=== PATIENT | female | born 1975 | race Caucasian/White ===

== ENCOUNTER 2016-09-13 19:18 | Observation (INO) | payer BC ==
--- NOTE | ~2016-09-13 | OR ---
Unit #: [id number] #: [id number] Patient: ALL REICH [id number] [address] [place], [place] [address] [id number] I MR#: [id number] NAME: ALL REICH ROOM: 462 Date of Procedure: 09/14/2016 Admission Date: 09/13/2016 Surgeon: Emeka Lara M.D. : 1975 Attending Physician: Emeka Lara M.D. OPERATIVE REPORT PREOPERATIVE DIAGNOSIS Bolus meat impaction of the distal esophagus. PROCEDURES PERFORMED Upper gastrointestinal endoscopy and foreign body removal. POSTOPERATIVE DIAGNOSES 1. The patient had meat impaction in the distal esophagus. This was disimpacted. 2. There was a stricture in the distal esophagus with benign appearance. 3. Small hiatus hernia. 4. Mild antral gastritis. A biopsy obtained from the antrum for CLOtest. 5. Rest of the examination up to third part of duodenum was normal. RECOMMENDATIONS The patient will be scheduled to have an elective dilation in the next couple of months as an outpatient. SEDATION USED MAC. DESCRIPTION OF PROCEDURE Following detailed explanation of the potential risks and complications of an upper endoscopy, namely perforation, bleeding, and complications related to sedation, the patient was brought to GI lab and laid in the left lateral decubitus position. Lubricated tip of the Olympus video upper endoscope was passed through the bite block into the proximal esophagus under direct vision. The entire esophageal mucosa was examined and the patient was noted to have meat impactions in distal esophagus with some vegetative matter above the meat impaction area. This was gently pushed into the stomach. The underlying mucosa showed evidence of esophageal stricture with benign appearance. In addition, a small hiatus hernia was noted. The scope was then advanced into the gastric cavity and the latter was insufflated. Mucosa of the fundus, body, and antrum was examined and mild antral erythema was noted. Pylorus was intubated with visualization of the normal duodenal bulb and second and third part of the duodenum. Upon withdrawal and retroflexion, incisura, cardia, and greater curve examined and biopsy obtained from the antrum for CLOtest. The scope was then withdrawn in the distal esophagus. Entire esophageal mucosa was examined all the way up to pharynx. No additional findings noted. The patient tolerated the procedure without any postprocedure complications. Unit #: [id number] #: [id number] Patient: ALL REICH Dictated by... Michelle Warren/la TD: 09/14/2016 07:43 JOB #: [id number] OPERATIVE REPORT Page 1 of 1 X Emeka Lara MD PROCEDURE OPERATIVE NOTE
--- NOTE | ~2016-09-13 | DS ---
Unit #: [id number] #: [id number] Patient: ALL REICH [id number] [address] [address] [id number] I MR#: [id number] NAME: ALL REICH ROOM: 46 Age: 40 Sex: F Admission Date: 09/13/2016 : 1975 Discharge Date: 09/14/2016 Attending Physician: Emeka Lara M.D. DISCHARGE SUMMARY DIAGNOSES 1. Bolus meat impaction of the esophagus. 2. Esophageal stricture. PROCEDURES DONE THIS CURRENT OUTPATIENT ADMISSION Upper gastrointestinal endoscopy and foreign body removal removal with biopsy on 09/14/16. DISCHARGE INSTRUCTION The patient is scheduled to have a repeat examination with elective dilation in the next 8 to 10 weeks' time. She was discharged on preadmission medications that included: 1. Lisinopril. 2. Hydrochlorothiazide. 3. Hydrocodone. 4. In addition, she was given pantoprazole 40 mg p.o. daily. New prescription. NARRATIVE This young lady works in [employer] and ended up coming with a bolus meat impaction of the esophagus through the emergency room. She was eating sausage and meat and some corn which got stuck in the esophagus. The patient has had similar history in the past but never required endoscopy. She underwent upper endoscopy and meat disimpaction without any event and was discharged home after the procedure. There were no complications. Dictated by... Michelle Warren TD: 09/15/2016 07:54 JOB #: [id number] Unit #: [id number] #: [id number] Patient: ALL REICH DISCHARGE SUMMARY Page 1 of 1 X Emeka Lara MD X DISCHARGE SUMMARY
--- NOTE | ~2016-09-13 | EKG ---
PATIENT: ALL REICH UNIT #: [id number] Ventricular Rate: 98 BPM Atrial Rate: 98 BPM P-R Interval: 144 ms QRS Duration: 98 ms Q-T Interval: 368 ms QTC Calculation(Bezet): 469 ms P [place]: 66 degrees Calculated R [place]: 20 degrees Calculated T [place]: 23 degrees Diagnosis Line: Normal sinus rhythm with sinus arrhythmia Diagnosis Line: Incomplete right bundle branch block Diagnosis Line: Borderline ECG Diagnosis Line: When compared with ECG of 30-MAR-2012 09:31, Diagnosis Line: No significant change was found Diagnosis Line: Confirmed by UMAIR CORREA MD ([id number]) on Diagnosis Line: 09/23/2016 8:27:15 AM INTERPRETING MD: MADELINE BATES
--- NOTE | ~2016-09-13 | HP ---
Unit #: [id number] #: [id number] Patient: ALL REICH [id number] [address] [address] [id number] I MR#: [id number] NAME: ALL REICH ROOM: 462 Age: 40 Sex: F Admission Date: 09/13/2016 : 1975 Attending Physician: Emeka Lara M.D. HISTORY AND PHYSICAL REASON FOR ADMISSION Bolus meat impaction in the esophagus. HISTORY OF PRESENT ILLNESS The patient was eating at a cookout in the form of sausage, chicken, and corn and the meat got stuck in the esophagus, so she ended coming to the emergency room and thus being admitted. She is complaining of chest pain as a result of meat impaction. There is no history of any shortness of breath, nor any history of upper GI bleed. PAST MEDICAL HISTORY Significant for history of hypertension and she has had no prior abdominal surgeries. MEDICATIONS AT HOME Include a combination of hydrochlorothiazide, lisinopril, or Zestoretic, as well as hydrocodone or [place] tablets. ALLERGIES She is allergic to sulfonamides and codeine. SOCIAL HISTORY The patient does not smoke or drink alcohol. Works at [employer]. She is and lives at home with her and her family. There is no family history of colon, pancreatic cancer or liver disease. REVIEW OF SYSTEMS A detailed review of organ system does not reveal any recent weight loss. No history of fevers, chills or rigors. No history of cough, expectoration or hemoptysis. No history of dysuria or hematuria. No history of focal seizures or extremity weakness. The rest of the organ system is unremarkable. PHYSICAL EXAMINATION GENERAL: She is alert and oriented, and weighs 220 pounds. VITAL SIGNS: Her vital signs are stable with a temperature of 90. 4, pulse is 78, respiratory rate 19, blood pressure 110/69. HEENT: She has no pallor, icterus, lymphadenopathy, or peripheral edema. CARDIOVASCULAR: Normal heart sounds. No murmurs on auscultation. LUNGS: Reveals normal breath sounds. Good air entry. ABDOMEN: Soft and nontender. Liver and spleen are not palpable. DIAGNOSTIC STUDIES LABORATORY: Pending. Unit #: [id number] #: [id number] Patient: ALL REICH CLINICAL IMPRESSION Patient with bolus meat impaction in esophagus, most likely the result of esophageal stricture and upper endoscopy and dilation is indicated to be scheduled shortly. The pros and cons of procedure, potential risks of complications were discussed with the patient including past history of perforation, bleeding, complication or early sedation. Dictated by Michelle Warren TD: 09/14/2016 08:35 JOB #: [id number] HISTORY AND PHYSICAL Page 1 of 1 X Emeka Lara MD HISTORY AND PHYSICAL
--- NOTE | ~2016-09-13 | EKG ---
PATIENT: ALL REICH UNIT #: [id number] Ventricular Rate: 77 BPM Atrial Rate: 77 BPM P-R Interval: 152 ms QRS Duration: 94 ms Q-T Interval: 386 ms QTC Calculation(Bezet): 436 ms P [place]: 42 degrees Calculated R [place]: 16 degrees Calculated T [place]: 24 degrees Diagnosis Line: Normal sinus rhythm Diagnosis Line: Normal ECG Diagnosis Line: When compared with ECG of 13-SEP-2016 19:33, Diagnosis Line: (unconfirmed) Diagnosis Line: No significant change was found Diagnosis Line: Confirmed by ANUSHA CHURCH MD ([id number]) on Diagnosis Line: 09/15/2016 9:05:24 PM INTERPRETING MD: KATHLEEN
[~2016-09-13 19:18] MED LIST: CIPRO PO; FLOMAX0.4 M1 PO; LISINOPRIL10 MG; LOESTRIN FE 1.51 TAB; NO MEDICATIONS; NORCO1 TAB 10/3 PO; PERCOCET 5/321 UDTAB PO; PHENERGAN25 MG PO; YASMIN 28 TABLE1 TAB PO; ZOFRAN ODT4 MG PO
[2016-09-14] MEDS ORDERED: ZESTORETIC 20-1 EACH PO (00:28)
[2016-09-14] MEDS ORDERED: PROTONIX PO (09:52)
== END 2016-09-14 11:26 | disposition home or self-care (01) | DRG 395 ==
LOC: SED 19:18 → SEDOF 21:09 → SED 21:16 → SEDOF 23:15 → C4C 23:15
DX: T18.128A Food in esophagus causing other injury, initial encounter (principal); K22.2 Esophageal obstruction; K44.9 Diaphragmatic hernia without obstruction or gangrene; K29.70 Gastritis, unspecified, without bleeding; I10 Essential (primary) hypertension; Z88.5 Allergy status to narcotic agent; Z88.2 Allergy status to sulfonamides; Z90.49 Acquired absence of other specified parts of digestive tract; Z87.442 Personal history of urinary calculi
CPT/HCPCS: 87077; 93005; 96372; 96374; 96375; 99284; G0378; J1610; J2250; J2550

== ENCOUNTER → 2016-11-20 | Day surgery (SDC) | payer BC ==
[~2016-11-20] MED LIST changes: +PROTONIX PO; +ZESTORETIC 20-1 EACH PO
--- NOTE | ~2016-11-20 | OR ---
Unit #: [id number] #: [id number] Patient: ALL REICH [id number] [address] [place], [place] [address] [id number] MR#: [id number] NAME: ALL REICH ROOM: Date of Procedure: 11/20/2016 Admission Date: 11/20/2016 Surgeon: Emeka Lara M.D. : 1975 Attending Physician: Emeka Lara M.D. OPERATIVE REPORT PRIMARY CARE PHYSICIAN Earnest Palomino M.D. PREOPERATIVE DIAGNOSIS The patient presented with bolus meat impaction and now has come for elective dilation. PROCEDURES PERFORMED Upper gastrointestinal endoscopy and dilation with a Curtis dilator. POSTOPERATIVE DIAGNOSIS The patient had distal esophageal ring. The latter was dilated using a 60-Hungarian Curtis dilator. RECOMMENDATIONS The patient will continue on Protonix once a day 40 mg p.o. daily. She will be followed up in the office in 3 to 4 months' time. SEDATION USED MAC. DESCRIPTION OF PROCEDURE Following detailed explanation of potential risks and complications of an upper endoscopy, namely perforation, bleeding, and complication related to sedation, the patient was brought to GI lab and laid in the left lateral decubitus position. Lubricated tip of the Olympus video upper endoscope was passed through the bite block into the proximal esophagus under direct vision. The entire esophageal mucosa was examined. The patient was noted to have distal esophageal mucosal ring. The latter appeared to be nonobstructing. The scope was then advanced into the gastric cavity and the latter was insufflated. Mucosa of the fundus, body, and antrum was examined and appeared unremarkable. Pylorus was intubated with visualization of the normal duodenal bulb and second and third part of the duodenum. Upon withdrawal and retroflexion; incisura, cardia, and greater curve was examined and no additional findings were noted. The scope was then withdrawn in the distal esophagus. The entire esophageal mucosa was examined all the way up to pharynx. No additional findings were noted. A 60-Hungarian Curtis dilator was introduced through the oral cavity and advanced into the esophagus. Repeat endoscopy showed minimal bleeding at gastroesophageal junction indicating effective dilation. The scope was then withdrawn all the way up to pharynx. No additional findings were Unit #: [id number] #: [id number] Patient: ALL REICH noted. The patient tolerated the procedure without any postprocedure complications. Dictated by... Michelle Warren/la TD: 11/20/2016 11:39 JOB #: [id number] CC: Earnest Palomino M.D. OPERATIVE REPORT Page 1 of 1 X Emeka Lara MD X PROCEDURE OPERATIVE NOTE
== END | disposition home or self-care (01) ==
LOC: COPS 06:26
DX: K22.2 Esophageal obstruction (principal); I10 Essential (primary) hypertension; K21.9 Gastro-esophageal reflux disease without esophagitis; Z87.442 Personal history of urinary calculi; Z88.2 Allergy status to sulfonamides; Z88.5 Allergy status to narcotic agent; Z79.899 Other long term (current) drug therapy; Z90.49 Acquired absence of other specified parts of digestive tract
CPT/HCPCS: 84703; J2250